=== PATIENT | female | born 1950 | race Caucasian/White ===

== ENCOUNTER 2017-09-20 04:42 | Emergency (ER) | payer MEDICARE, SELFPAY ==
[2017-09-20 04:47] VITALS: BP 177/94; PULSE 90; RESP 18; TEMP 36.8; O2SAT 97; BMI 31.3
--- NOTE | 2017-09-20 05:21 | PC.NURSE ---
Pt. reports she took 2 benadryl at 1030 pm
[2017-09-20 05:37] LABS: Basophils # 0.1 K/mm3 (0-0.2); Basophils % 0.8 % (0.1-2.0); Eosinophils # 0.4 K/mm3 (0.0-0.4); Eosinophils % 3.8 % (0.1-12.0); Hematocrit 44.8 % (37.0-47.0); Hemoglobin 14.8 g/dL (12.2-16.2); Lymphocytes % 21.2 K/mm3 (10-50); Mean Corpuscular Hemoglobin 30.9 pg (27.0-31.2); Mean Corpuscular Volume 93.5 fl (81-99); Mean Platelet Volume 7.8 fl (7.4-10.4); Monocytes # 0.7 K/mm3 (0.1-1.0); Neutrophils # 6.3 K/mm3 (1.8-7.8); Neutrophils % 67.2 % (37.0-80.0); Platelet Count 257 K/mm3 (142-424); Red Blood Count 4.79 M/mm3 (4.20-5.40); Red Cell Distribution Width 12.6 % (11.5-17.5); White Blood Count 9.4 K/mm3 (4.8-10.8)
--- NOTE | 2017-09-20 05:51 | PC.NURSE ---
redraw green top tube for lab.
[2017-09-20 06:14] LABS: Alanine Aminotransferase 21 U/L (12-78); Albumin Level 3.2 gm/dL (3.4-5.0); Alkaline Phosphatase 98 U/L (46-116); Anion Gap 12.8 mEq/L (5-15); Aspartate Amino Transferase 12 U/L (15-37); Bilirubin,Total 0.3 mg/dL (0.2-1.0); Blood Urea Nitrogen 17 mg/dL (7-18); Calcium 8.6 mg/dL (8.5-10.1); Carbon Dioxide 24 mmol/L (21.0-32.0); Chloride 110 mmol/L (98-107); Creatinine Clearance Estimated 76 mL/min (0-300); Creatinine,Serum 0.85 mg/dL (0.55-1.02); Estimated Glomerular Filt Rate 66 ml/min (>60); GFR (African American) 80 ML/MIN (>60); Globulin 3.2 gm/dl (1.3-3.2); Glucose 121 mg/dL (74-106); Potassium 3.8 mmoL/L (3.5-5.1); Sodium 143 mmol/L (136-145); Total Protein,Serum 6.4 gm/dL (6.4-8.2)
[2017-09-20 06:27] VITALS: BP 161/98; PULSE 76; RESP 16; O2SAT 96
--- NOTE | 2017-09-20 06:31 | HMH.EDALLER ---
ED Disposition Clinical Impression: Angioedema Qualifiers: Encounter type: initial encounter Qualified Code(s): T78.3XXA - Angioneurotic edema, initial encounter Disposition: Home, Self-Care Condition on Discharge: Good Instructions: DI for Angioedema Additional Instructions: call pcp for follow up and stop lisinopril - Critical Care Critical Care Time: No Attestation: On 09/20/17, the high probability of a clinically significant, sudden or life threatening deterioration of the following system(s) required my full and direct attention, intervention and personal management. The time I documented below is in addition to time spent performing reported procedures but includes the following listed in this critical care notation. Medical Decision Making - Medical Records Medical records reviewed: Yes: I reviewed the patient's medical records. Vital Signs: 09/20/17 04:47 09/20/17 06:27 Temperature 98.2 F Temperature Source Oral Pulse Rate [Right Radial] 90 76 Respiratory Rate 18 16 Blood Pressure [Right Arm] 177/94 161/98 Blood Pressure Mean [Right Arm] 121 119 Blood Pressure Source [Right Arm] Automatic Cuff Automatic Cuff Blood Pressure Position [Right Arm] Sitting Sitting 02 Sat by Pulse Oximetry 97 96 Oxygen Delivery Method Room Air Room Air - Lab Data Lab results reviewed: Yes: I reviewed the patient's lab results. Lab Results 09/20/17 05:10: WBC 9.4, RBC 4.79, Hgb 14.8, Hct 44.8, MCV 93.5, MCH 30.9, MCHC 33.0, RDW 12.6, Plt Count 257, MPV 7.8, Neut % (Auto) 67.2, Lymph % (Auto) 21.2, [place] % (Auto) 7.0, Eos % (Auto) 3.8, Baso % (Auto) 0.8, Neut # (Auto) 6.3, Lymph # (Auto) 2.0, [place] # (Auto) 0.7, Eos # (Auto) 0.4, Baso # (Auto) 0.1 09/20/17 05:45: Sodium 143, Potassium 3.8, Chloride 110 H, Carbon Dioxide 24, Anion Gap 12.8, BUN 17, Creatinine 0.85, Estimated Creat Clear 76, Estimated GFR 66, Est GFR ( Amer) 80, Glucose 121 H, Calcium 8.6, Total Bilirubin 0.3, AST 12 L, ALT 21, Alkaline Phosphatase 98, Total Protein 6.4, Albumin 3.2 L, Globulin 3.2, Albumin/Globulin Ratio 1.0 L Result diagrams: 09/20/17 05:10 09/20/17 05:45 Orders (Tests/Meds): ED MEDICATIONS Discontinued Medications Generic Name Dose Route Start Last Admin Trade Name Manuel PRN Reason Stop Dose Admin Sodium Chloride 1,000 mls @ 999 mls/hr 09/20/17 05:15 09/20/17 05:19 Sod Chloride 0.9% 1000ml Bag IV 09/20/17 06:15 999 mls/hr .Q1H1M AMINAH Administration Methylprednisolone Sodium Succinate 125 mg 09/20/17 06:26 09/20/17 06:28 Solu-Medrol 125mg/2ml Vial IV 09/20/17 06:27 125 mg ONCE ONE Administration - Marty Inquiry Pt receiving controlled substance: No Allergic React/Insect Bite HPI - General Chief complaint: Allergic Reaction Stated complaint: possible allergic reaction neck/tongue swollen Time Seen by Provider: 09/20/17 06:31 Mode of Arrival - ED Triage: Ambulatory Source of Information: Patient, Medical Record Limitations: No Limitations - History of Present Illness HPI narrative: swollen tongue this am MD complaint: allergic reaction Onset (ago): hour(s) Exposure: unknown Symptoms: tongue swelling Treatment prior to arrival: benadryl Allergies/Adverse Reactions: Allergies Allergy/AdvReac Type Severity Reaction Status Date / Time SULFA (sulfonamide) Allergy Unknown Uncoded 08/07/17 14:38 Sulfamethoxazole Allergy Unknown Uncoded 08/07/17 14:38 Previous Allergic Reaction History: none Severity: moderate - Related Data Home Medications Medication Instructions Recorded Confirmed Aspirin [Aspir 81] 81 mg PO DAILY 09/20/17 09/20/17 Lisinopril [Lisinopril 20mg Tab] 20 mg PO DAILY 09/20/17 09/20/17 raNITIdine HCl [Zantac] 150 mg PO BID 09/20/17 09/20/[address] [facility] History I have reviewed the patient's past medical history: Yes - *Social History Smoking Status: Former smoker Alcohol Intake: never - Psychiatric History Expresses thoughts of harmin
--- NOTE | 2017-09-20 06:34 | ED_ITS ---
ED Disposition Clinical Impression: Angioedema Qualifiers: Encounter type: initial encounter Qualified Code(s): T78.3XXA - Angioneurotic edema, initial encounter Disposition: Home, Self-Care Condition on Discharge: Good Instructions: DI for Angioedema Additional Instructions: call pcp for follow up and stop lisinopril - Critical Care Critical Care Time: No Attestation: On 09/20/17, the high probability of a clinically significant, sudden or life threatening deterioration of the following system(s) required my full and direct attention, intervention and personal management. The time I documented below is in addition to time spent performing reported procedures but includes the following listed in this critical care notation. Medical Decision Making - Medical Records Medical records reviewed: Yes: I reviewed the patient's medical records. Vital Signs: 09/20/17 04:47 09/20/17 06:27 Temperature 98.2 F Temperature Source Oral Pulse Rate [Right Radial] 90 76 Respiratory Rate 18 16 Blood Pressure [Right Arm] 177/94 161/98 Blood Pressure Mean [Right Arm] 121 119 Blood Pressure Source [Right Arm] Automatic Cuff Automatic Cuff Blood Pressure Position [Right Arm] Sitting Sitting 02 Sat by Pulse Oximetry 97 96 Oxygen Delivery Method Room Air Room Air - Lab Data Lab results reviewed: Yes: I reviewed the patient's lab results. Lab Results 09/20/17 05:10: WBC 9.4, RBC 4.79, Hgb 14.8, Hct 44.8, MCV 93.5, MCH 30.9, MCHC 33.0, RDW 12.6, Plt Count 257, MPV 7.8, Neut % (Auto) 67.2, Lymph % (Auto) 21.2 , [place] % (Auto) 7.0, Eos % (Auto) 3.8, Baso % (Auto) 0.8, Neut # (Auto) 6.3, Lymph # (Auto) 2.0, [place] # (Auto) 0.7, Eos # (Auto) 0.4, Baso # (Auto) 0.1 09/20/17 05:45: Sodium 143, Potassium 3.8, Chloride 110 H, Carbon Dioxide 24, Anion Gap 12.8, BUN 17, Creatinine 0.85, Estimated Creat Clear 76, Estimated GFR 66, Est GFR ( Amer) 80, Glucose 121 H, Calcium 8.6, Total Bilirubin 0.3, AST 12 L, ALT 21, Alkaline Phosphatase 98, Total Protein 6.4, Albumin 3.2 L , Globulin 3.2, Albumin/Globulin Ratio 1.0 L Result diagrams: 09/20/17 05:10 09/20/17 05:45 Orders (Tests/Meds): ED MEDICATIONS Discontinued Medications Generic Name Dose Route Start Last Admin Trade Name Freq PRN Reason Stop Dose Admin Sodium Chloride 1,000 mls @ 999 mls/hr 09/20/17 05:15 09/20/17 05:19 Sod Chloride 0.9% 1000ml Bag IV 09/20/17 06:15 999 mls/hr .Q1H1M AMINAH Administration Methylprednisolone Sodium Succinate 125 mg 09/20/17 06:26 09/20/17 06:28 Solu-Medrol 125mg/2ml Vial IV 09/20/17 06:27 125 mg ONCE ONE Administration - Marty Inquiry Pt receiving controlled substance: No Allergic React/Insect Bite HPI - General Chief complaint: Allergic Reaction Stated complaint: possible allergic reaction neck/tongue swollen Time Seen by Provider: 09/20/17 06:31 Mode of Arrival - ED Triage: Ambulatory Source of Information: Patient, Medical Record Limitations: No Limitations - History of Present Illness HPI narrative: swollen tongue this am complaint: allergic reaction Onset (ago): hour(s) Exposure: unknown Symptoms: tongue swelling Treatment prior to arrival: benadryl Allergies/Adverse Reactions: Allergies Allergy/AdvReac Type Severity Reaction Status Date / Time SULFA (sulfo
== END 2017-09-20 06:41 | disposition home or self-care (01) ==
PROVIDERS: Emergency Provider Emergency Medicine
DX: T78.3XXA Angioneurotic edema, initial encounter (principal); Z88.2 Allergy status to sulfonamides; I10 Essential (primary) hypertension; Z90.49 Acquired absence of other specified parts of digestive tract; Z87.891 Personal history of nicotine dependence
CPT/HCPCS: 80053; 85025; 96365; 96375; 99282

== ENCOUNTER → 2017-12-17 15:45 | Outpatient (CLI) | payer MEDICARE, SELFPAY ==
--- NOTE | 2017-12-17 15:51 | NVE_ITS ---
Venous Exam Indications: 729.5 Pain in limb. IMPRESSIONS 1. There is no evidence of significant Reflux. 2. Deep vein thrombosis involving the left femoral vein Left lower extremity venous duplex evaluation. Doppler flow study including spectral analysis, color and saha scale imaging. Location: Vascular laboratory. Patient status: Outpatient. CRITICAL FINDINGS - Reported to: maxwell Ma back and verified. - 12/17/17 - 1620 - +DVT SFV Tables: Venous flow and imaging: + + + + Location Overall Flow properties + + + + Left common femoral Patent Normal phasicity; spontaneous; normal augmentation; compressible + + + + Left saphenofemoral Patent Compressible junction + + + + Left profunda femoral Patent Compressible + + + + Left femoral Partially occluded Diminished phasicity; diminished spontaneity; diminished augmentation; partially compressible + + + + Left greater saphenous Patent Normal phasicity; spontaneous; normal augmentation; compressible + + + + Left popliteal Patent Normal phasicity; spontaneous; normal augmentation; compressible + + + + Left posterior tibial Patent Compressible + + + + Left peroneal Patent Compressible + + + + Left gastrocnemius Patent Compressible + + + + Left soleal Patent Compressible + + + + (Report amended ) Electronically signed by: Jeffery Velez [id number]
== END ==
PROVIDERS: PCP Family Medicine; Visit Provider Family Medicine
DX: R60.1 Generalized edema (principal); M25.562 Pain in left knee
CPT/HCPCS: 93971

== ENCOUNTER → 2018-07-09 14:33 | Outpatient (CLI) | payer MEDICARE, SELFPAY ==
--- NOTE | 2018-07-09 14:38 | CT_ITS ---
CT lung screening EXAM: CT LUNG LOW DOSE WO CONTRAST HISTORY: 45 pack-year smoking history asymptomatic for lung cancer ITS.REASON: NICOTINE DEPENDENCE ORDERING PHYSICIAN: Rogerio Alcala MD PATIENT AGE: 68 years COMPARISON: None TECHNIQUE: The exam was performed on a GE Light Speed [address] scanner using 2.90 mGy CTDI. A low dose helical CT CHEST was performed on a multi-detector scanner. All CT scans at the facility use one or more dose reduction, viz: automated exposure control, ma/kV adjustment per patient size (including targeted exams where dose is matched to indication, i.e. head), or iterative reconstruction technique. The LDCT was performed in a facility that meets the criteria for the screening program. Data regarding this exam was submitted to ACR which is an approved registry. The order for this exam indicates that it came as a result of a lung cancer screening counseling shard decision-making visit that included all the elements required of such a visit including smoking cessation. The radiologist interpreting this exam meets the CMS criteria for the LDCT lung cancer screening program. The exam is reported using the Lung-RADS classification scale and reported to the ACR registry. NOTE: This study was performed for the specific purposes of lung cancer screening and is not an alternative to diagnostic chest CT. RADIATION DOSE: CTDI vol(CT dose Index-volume) = 2.90mG DLP (Dose Length Product) = 96.38 mGcm FINDINGS: Hyperinflation with attenuation of the peripheral pulmonary vessels and mild coarsening of bronchovascular markings consistent with COPD. There are several noncalcified pulmonary nodules in both lungs largest of which is in the right middle lobe laterally at 10 mm. No central obstructing lesions. There are at least 4 noncalcified pulmonary nodules on the right and 4 noncalcified pulmonary nodules in the left lung base, the largest of which is 8 mm in the extreme left lung base. The thyroid gland is enlarged on both sides left greater than right. Atherosclerotic calcification involves the thoracic aorta. There are scattered small lymph nodes within the mediastinum. There is extensive coronary artery calcification of the distal left main and LAD and proximal circumflex and RCA. Calcification is also present along the inferior aspect of the pericardium. Left adrenal gland is enlarged at 2.6 x 2 cm IMPRESSION: 1. Lung RADS Category: 4, SUSPICIOUS. There are multiple noncalcified pulmonary nodules as described above. The nodules could be inflammatory or infectious or could be due to metastatic disease. Does the patient have a known primary cancer? 2. Other findings: Coronary artery disease. Left adrenal enlargement Thyromegaly RECOMMENDATIONS: Recommend either PET CT or three-month follow-up chest CT without and with contrast. Also need correlation with clinical findings. Does the patient have a history of primary cancer? Also correlation with older studies if available recommended. No old exams are made available from this institution.
== END ==
PROVIDERS: PCP Family Medicine; Visit Provider Family Medicine
DX: Z12.2 Encounter for screening for malignant neoplasm of respiratory organs (principal); Z87.891 Personal history of nicotine dependence

== ENCOUNTER → 2020-12-24 12:08 | Outpatient (CLI) | payer MEDICARE, SELFPAY | PROVIDERS: Visit Provider Internal Medicine Gastroenterology | DX: Z01.812 Encounter for preprocedural laboratory examination (principal); Z20.822 Contact with and (suspected) exposure to COVID-19; Z12.11 Encounter for screening for malignant neoplasm of colon | CPT/HCPCS: U0003 ==

== ENCOUNTER 2020-12-27 12:30 | Day surgery (SDC) | payer MEDICARE, SELFPAY ==
[2020-12-21 14:40] VITALS: BMI 34.4
[2020-12-27] VITALS (7 sets, daily range): BP systolic 124–150; BP diastolic 73–85; PULSE 59–71; RESP 16–18; TEMP 36.2–36.4; O2SAT 93–99
--- NOTE | 2020-12-27 13:57 | HMH.ANESCL ---
[facility] Anesthesia Checklist - Patient Identification Patient Identification: Arm Band - Structural Data Admitted From: Home Planned Operative Procedure/s: Colonoscopy Consent for Planned Operative Procedure(s) Verified: Yes - NPO Status Verified Time NPO: 00:00 - Airway Assessment C-Spine Mobility Assessed: Yes TMJ Mobility Assessed: Yes Dentition: Good Dentition - Neurological Assessment Level of Consciousness: Awake Hx Seizures: No Numbness or tingling in extremities: No - Anesthesia Plan Anesthesia Risk discussed: Yes Anesthesia Plan: Verified ASA Class: II Anesthesia Type: MAC [facility] History I have reviewed the patient's past medical history: Yes Medical History: Denies:: Cancer, Diabetes Mellitus Type 1, Diabetes Mellitus Type 2, MRSA, Seizures *Have you ever received a pneumonia vaccine?: Yes *Have you received a flu vaccine this season?: Yes Anesthesia experience/problems:: Hypotension Amputation: No Fractures: No - *Social History Last grade of school completed: High school graduate Smoking Status: Former smoker Tobacco Type: cigarettes # Packs/Day (cigarettes): 1 Alcohol Intake: never Substance Use Type: denies use *Occupational Status:: retired *Travel in the last 8 weeks: None Family Hx:: Unable to obtain
--- NOTE | 2020-12-27 14:53 | HMH.PROC ---
[facility] Procedure Note Procedure Note:: Colonoscopy Procedure Report: Colonoscopy with cold snare polypectomy Endoscopist: Fly Soto II, MD Referring physician: Elliot Alcala MD Date of Procedure: December 27, 2020 Equipment: Olympus 190 variable stiffness pediatric colonoscope Sedation: MAC sedation Indication: Mrs. Briceño is a 70-year-old female with a recently positive Cologuard test. She reports no abdominal pain, weight loss, change in her bowel habits or rectal bleeding. She reports no family history of colon cancer. This is her first colonoscopy. Procedure: Prior to the procedure, a history and physical exam was performed, and patient's medications and allergies were reviewed. The risks, benefits and alternatives of the sedation and procedure were discussed with the patient. All questions were answered and informed consent was obtained. The patient was brought to the procedure room. Patient identification and proposed procedure were verified by the physician and the nurse. The patient was placed in a left lateral decubitus position and the scope was passed under direct vision. Throughout the procedure, the patient's blood pressure, pulse, and oxygen saturations were monitored continuously. The colonoscopy was accomplished without difficulty. The patient tolerated the procedure well. Findings: On digital rectal examination there was normal rectal tone. There were no external hemorrhoids. The colonoscope was introduced through the anal canal to the rectum and advanced to the cecum. The ileocecal valve and appendiceal orifice were identified. The scope was advanced a short distance into the ileum which appeared grossly normal. The scope was then withdrawn into the colon. There was a very large advanced flat polyp extending one half the circumference of the cecum/ileocecal valve that probably expanded 35 mm (large granular adenomatous polyp). This was removed in piecemeal resection. There were 3 additional smaller polyps (transverse x1 (5 mm) and descending x2 (4 and 8 mm)). All of these were removed via cold snare polypectomy. There were scattered diverticuli throughout the colon but more predominantly in the left colon. The rectum itself was normal. Upon retroflexion within the rectum there were grade 2 internal hemorrhoids. The preparation was fair to poor throughout with [place] Preparation Score of 6 out of 9. The cecal time was 20 minutes. Impression: 1. Large advanced adenomatous polyp cecum/ileocecal valve (35 mm expanding one half circumference of cecum) 2. 3 additional colon polyps 3. Pandiverticulosis 4. Grade 2 internal hemorrhoids 5. Fair to poor bowel preparation Plan: I will discuss the findings with the patient and family. I would recommend repeat surveillance colonoscopy in 6 months (or less) based upon the pathology and bowel preparation. If the large/advanced adenomatous polyp of cecum shows evidence of high-grade dysplasia, I would recommend surgical resection/right hemicolectomy. I will recommend a fiber bowel regimen.
== END 2020-12-27 15:37 | disposition home or self-care (01) ==
LOC: OUTP 12:32
PROVIDERS: PCP Family Medicine; Visit Provider Internal Medicine Gastroenterology
PROC: 0DJD8ZZ Inspection of Lower Intestinal Tract, Via Natural or Artificial Opening Endoscopic (ICD-10-PCS; CPT 45378; principal; 2020-12-27 13:30)
DX: K63.5 Polyp of colon (principal); K57.30 Diverticulosis of large intestine without perforation or abscess without bleeding; K64.1 Second degree hemorrhoids; Z87.891 Personal history of nicotine dependence; Z88.2 Allergy status to sulfonamides; Z79.82 Long term (current) use of aspirin; Z79.899 Other long term (current) drug therapy
CPT/HCPCS: 45385; 88305

== ENCOUNTER → 2021-01-25 09:55 | Outpatient (CLI) | payer MEDICARE, SELFPAY ==
[2021-01-25 10:23] LABS: Basophils # 0.1 K/mm3 (0-0.2); Basophils % 0.7 % (0.1-2.0); Eosinophils # 0.4 K/mm3 (0.0-0.4); Eosinophils % 3.3 % (0.1-12.0); Hematocrit 44.8 % (37.0-47.0); Hemoglobin 14.8 g/dL (12.2-16.2); Lymphocytes % 18.2 % (10-50); Mean Corpuscular Volume 91.1 fl (81-99); Mean Platelet Volume 7.8 fl (7.4-10.4); Monocytes # 0.6 K/mm3 (0.1-1.0); Monocytes % 5.4 % (1.7-9.3); Neutrophils # 8.1 K/mm3 (1.8-7.8); Neutrophils % 72.4 % (37.0-80.0); Platelet Count 241 K/mm3 (142-424); Red Blood Count 4.92 M/mm3 (4.20-5.40); Red Cell Distribution Width 13.4 % (11.5-17.5); White Blood Count 11.2 K/mm3 (4.8-10.8)
[2021-01-25 10:52] LABS: Alanine Aminotransferase 30 U/L (12-78); Albumin Level 3.8 g/dl (3.5-5.0); Albumin/Globulin Ratio 1.5 (1.1-1.8); Alkaline Phosphatase 128 U/L (38-126); Anion Gap 10.2 mEq/L (5-15); Aspartate Amino Transferase 34 U/L (14-36); Bilirubin,Total 0.8 mg/dl (0.2-1.3); Blood Urea Nitrogen 18 mg/dl (7-17); Calcium 8.7 mg/dl (8.4-10.2); Carbon Dioxide 28 mmol/L (22.0-30.0); Chloride 106 mmol/L (98-107); Chol/HDL Ratio 3.1 (1-3.5); Cholesterol 160 mg/dl (140-200); Estimated Glomerular Filt Rate 71 ml/min (>60); GFR (African American) 85 ML/MIN (>60); Globulin 2.6 g/dL (1.3-3.2); Glucose 128 mg/dl (74-100); HDL Cholesterol 51 mg/dl (40-60); Potassium 4.2 mmoL/L (3.5-5.1); Sodium 140 mmol/L (136-145); Total Protein,Serum 6.4 g/dl (6.3-8.2); Triglycerides 145 mg/dl (30-150); VLDL Cholesterol 29 mg/dL (0-40)
[2021-01-25 11:03] LABS: Direct LDL Cholesterol 88.88 mg/dL (100-129)
== END ==
PROVIDERS: Visit Provider Family Medicine
DX: I10 Essential (primary) hypertension (principal); E78.5 Hyperlipidemia, unspecified
CPT/HCPCS: 36415; 80053; 80061; 85025

== ENCOUNTER → 2021-08-02 09:35 | Outpatient (CLI) | payer MEDICARE, SELFPAY ==
[2021-08-02 10:55] LABS: Chloride 105 mmol/L (98-107)
[2021-08-02 10:56] LABS: Potassium 4.6 mmoL/L (3.5-5.1); Sodium 140 mmol/L (136-145)
[2021-08-02 10:58] LABS: Alanine Aminotransferase 20 U/L (12-78); Albumin Level 3.9 g/dl (3.5-5.0); Albumin/Globulin Ratio 1.5 (1.1-1.8); Alkaline Phosphatase 125 U/L (38-126); Anion Gap 14.6 mEq/L (5-15); Aspartate Amino Transferase 28 U/L (14-36); Bilirubin,Total 0.3 mg/dl (0.2-1.3); Blood Urea Nitrogen 19 mg/dl (7-17); Carbon Dioxide 25 mmol/L (22.0-30.0); Cholesterol 153 mg/dl (140-200); Estimated Glomerular Filt Rate 54 ml/min (>60); GFR (African American) 66 ML/MIN (>60); Globulin 2.6 g/dL (1.3-3.2); Total Protein,Serum 6.5 g/dl (6.3-8.2); Triglycerides 128 mg/dl (30-150); VLDL Cholesterol 26 mg/dL (0-40)
[2021-08-02 10:59] LABS: Chol/HDL Ratio 2.9 (1-3.5); Glucose 112 mg/dl (74-100); HDL Cholesterol 52 mg/dl (40-60)
[2021-08-02 11:10] LABS: Direct LDL Cholesterol 91.23 mg/dL (100-129)
== END ==
PROVIDERS: Visit Provider Family Medicine
DX: E78.5 Hyperlipidemia, unspecified (principal); I10 Essential (primary) hypertension
CPT/HCPCS: 36415; 80053; 80061

== ENCOUNTER → 2022-03-20 09:57 | Outpatient (CLI) | payer MEDICARE, SELFPAY ==
[2022-03-20 11:13] LABS: Alanine Aminotransferase 23 U/L (12-78); Albumin Level 3.8 g/dl (3.5-5.0); Albumin/Globulin Ratio 1.5 (1.1-1.8); Alkaline Phosphatase 126 U/L (38-126); Anion Gap 8.5 mEq/L (5-15); Aspartate Amino Transferase 32 U/L (14-36); Bilirubin,Total 0.5 mg/dl (0.2-1.3); Blood Urea Nitrogen 18 mg/dl (7-17); Calcium 9.2 mg/dl (8.4-10.2); Carbon Dioxide 28 mmol/L (22.0-30.0); Chloride 107 mmol/L (98-107); Chol/HDL Ratio 3.8 (1-3.5); Cholesterol 166 mg/dl (140-200); Estimated Glomerular Filt Rate 70 ml/min (>60); GFR (African American) 85 ML/MIN (>60); Globulin 2.6 g/dL (1.3-3.2); Glucose 122 mg/dl (74-100); HDL Cholesterol 44 mg/dl (40-60); Potassium 4.5 mmoL/L (3.5-5.1); Sodium 139 mmol/L (136-145); Total Protein,Serum 6.4 g/dl (6.3-8.2); Triglycerides 167 mg/dl (30-150); VLDL Cholesterol 33 mg/dL (0-40)
[2022-03-20 11:24] LABS: Direct LDL Cholesterol 94.92 mg/dL (100-129)
== END ==
PROVIDERS: PCP Family Medicine; Visit Provider Family Medicine
DX: E78.5 Hyperlipidemia, unspecified (principal); I10 Essential (primary) hypertension
CPT/HCPCS: 36415; 80053; 80061

== ENCOUNTER → 2022-09-23 09:00 | Outpatient (CLI) | payer MEDICARE, SELFPAY ==
[2022-09-23 09:57] LABS: Alanine Aminotransferase 18 U/L (12-78); Albumin Level 4.2 g/dl (3.5-5.0); Albumin/Globulin Ratio 1.7 (1.1-1.8); Alkaline Phosphatase 90 U/L (38-126); Anion Gap 10.1 mEq/L (5-15); Aspartate Amino Transferase 24 U/L (14-36); Bilirubin,Total 0.7 mg/dl (0.2-1.3); Blood Urea Nitrogen 17 mg/dl (7-17); Calcium 9.3 mg/dl (8.4-10.2); Carbon Dioxide 30 mmol/L (22.0-30.0); Chloride 107 mmol/L (98-107); Chol/HDL Ratio 3.1 (1-3.5); Cholesterol 178 mg/dl (140-200); Estimated Glomerular Filt Rate 61 ml/min (>60); GFR (African American) 74 ML/MIN (>60); Globulin 2.5 g/dL (1.3-3.2); Glucose 124 mg/dl (74-100); HDL Cholesterol 57 mg/dl (40-60); Potassium 5.1 mmoL/L (3.5-5.1); Sodium 142 mmol/L (136-145); Total Protein,Serum 6.7 g/dl (6.3-8.2); Triglycerides 175 mg/dl (30-150); VLDL Cholesterol 35 mg/dL (0-40)
[2022-09-23 10:08] LABS: Direct LDL Cholesterol 94.57 mg/dL (100-129)
== END ==
PROVIDERS: PCP Family Medicine; Visit Provider Family Medicine
DX: I10 Essential (primary) hypertension (principal); E78.5 Hyperlipidemia, unspecified
CPT/HCPCS: 36415; 80053; 80061